=== PATIENT | male | born 1970 | race Caucasian/White ===

== ENCOUNTER 2021-11-09 16:05 | Day surgery (SDC) | payer BC, OTHER ==
[2021-11-09] MEDS ORDERED: Ketorolac 30 MG/ML SDV IVPUSH ONE (16:49)
[2021-11-09] MEDS ORDERED: HYDROmorphone 1 MG/ML Syringe IVPUSH ONE (16:49)
[2021-11-09] MEDS ORDERED: Sodium Chloride 0.9% 1,000 ML IV ONE (16:49)
[2021-11-09 17:42] LABS: CARBON DIOXIDE,CO2 24.6 mmol/L (21.0-32.0); POTASSIUM,K 4.1 mmol/L (3.5-5.1)
[2021-11-09] MEDS ORDERED: Piperacillin/Tazobactam 3.375 GM in Sodium Chloride 0.9% 50 ML IV ONE (17:55)
[2021-11-09] MEDS ORDERED: Iopamidol 755 MG/ML 500 ML Multipack Bottle IVPUSH ONE (18:24)
[2021-11-09] MEDS ORDERED: Lactated Ringers 1,000 ML IV ONE (19:46)
[2021-11-09] MEDS ORDERED: Lidocaine 2% 5 ML SDV ONE (20:29)
[2021-11-09] MEDS ORDERED: Dexamethasone 4 MG/ML 5 ML MDV ONE (20:29)
[2021-11-09] MEDS ORDERED: Ondansetron 4 MG/2 ML SDV ONE (20:29)
[2021-11-09] MEDS ORDERED: Rocuronium Bromide 50 MG/5 ML Syringe ONE (20:29)
[2021-11-09] MEDS ORDERED: Sugammadex Sodium 200 MG/2 ML VIAL ONE (20:29)
[2021-11-09] MEDS ORDERED: Midazolam 1 MG/ML 2 ML SDV ONE (20:30)
[2021-11-09] MEDS ORDERED: Propofol 200 MG/20 ML SDV ONE (20:30)
[2021-11-09] MEDS ORDERED: fentaNYL 250 MCG/5 ML SDV ONE (20:30)
[2021-11-09] MEDS ORDERED: HYDROmorphone 2 MG/ML Syringe IVPUSH PRN (21:58)
[2021-11-09] MEDS: Acetaminophen/oxyCODONE 325-5 MG Tab PO PRN (22:32)
[2021-11-09] MEDS ORDERED: Bupivacaine 0.5% 30 ML SDV ONE (22:57)
[2021-11-10] MEDS: Piperacillin/Tazobactam 3.375 GM in Sodium Chloride 0.9% 50 ML IV SCH ×3 (00:54→12:37)
[2021-11-10] MEDS: Acetaminophen/oxyCODONE 325-5 MG Tab PO PRN (04:26)
[2021-11-10] MEDS ORDERED: Polyethylene Glycol 3350 Powder 17 GM Packet PO SCH (09:00)
[2021-11-10] MEDS ORDERED: Ketorolac 30 MG/ML SDV IVPUSH ONE (09:52)
== END 2021-11-10 14:00 | disposition home or self-care (01) ==
LOC: MW.ED 16:05 → MW.SDS 21:08 → MW.MS 21:56 → MW.SDS 11-10 14:00
PROVIDERS: ATTEND Surgery
DX: K61.0 Anal abscess (principal); Z79.899 Other long term (current) drug therapy; Z01.812 Encounter for preprocedural laboratory examination; Z20.822 Contact with and (suspected) exposure to COVID-19
CPT/HCPCS: 36415; 46050; 74177; 80053; 83605; 85025; 87040; 87635; 96365; 96366; 96375; 99284; A9270; J0131; J1100; J1170; J1885; J2250; J2405; J2543; J2704; J3010; J3490; J7030; J7120; Q9967; 00902; U0002